=== PATIENT | male | born 1950 | race Hispanic/Latino ===

== ENCOUNTER → 2017-12-13 | Outpatient (CLI) | payer MEDICARE ==
[~2017-12-13] MED LIST: ALBU2.5V2 NEB; ASPI-1197 PO; DESI10TA3 PO; FINA5TAB41 PO; FLUT1AER IH; NITR0.4T50 SL; PANT40TA25 PO; POTA10TA14 PO; PRED10B PO; ROSU10TA27 PO; SULF500T8 PO; TAMS0.4C32 PO; TRAM50TA4 PO
== END | disposition home or self-care (01) ==
LOC: SHCH 10:02
PROVIDERS: ATTEND Internal Medicine Cardiovascular Disease
DX: I73.9 Peripheral vascular disease, unspecified (principal); K55.059 Acute (reversible) ischemia of intestine, part and extent unspecified; I70.0 Atherosclerosis of aorta
CPT/HCPCS: 93978

== ENCOUNTER → 2019-11-09 | Outpatient (CLI) | payer MEDICARE ==
[~2019-11-09] MED LIST changes: +GADODIAMIDE 10 MMOL/20 ML VIAL IV ONE; -ROSU10TA27 PO; +ROSU10TA28 PO
== END | disposition home or self-care (01) ==
LOC: RAH 10:29
PROVIDERS: ATTEND Family Medicine
DX: G31.9 Degenerative disease of nervous system, unspecified (principal); Z85.841 Personal history of malignant neoplasm of brain
CPT/HCPCS: 70553; A9579